=== PATIENT | male | born 1955 ===

== ENCOUNTER 2016-05-21 08:48 | Emergency (ER) | payer BC ==
--- NOTE | 2016-05-21 09:16 | UC ---
UC General HPI - HPI Summary HPI Summary: complaint of nasal congestion and cough for over 2 weeks sinus pressure and pain more on the left side, left ear pain swelling under his tongue feels like a stone left side of tongue is painful and radiates into both sides of his jaw having some pus coming out od salivary gland for approx 2 days denies fever and chills, denies difficulty swallowing taking advil for pain relief sucking on hard candy with some relief - History of Current Complaint Stated Complaint: ORAL COMPLAINT Time Seen by Provider: 05/21/16 09:09 Hx Obtained From: Patient - Allergy/Home Medications Allergies/Adverse Reactions: Allergies Allergy/AdvReac Type Severity Reaction Status Date / Time Adhesive Tape Allergy Intermediate Rash Verified 05/21/16 09:30 Iodine Allergy Intermediate BLISTERY Verified 05/21/16 09:30 RASH Home Medications: Home Medications Bp Med, ? Name 1 tab PO DAILY 05/21/16 [History] Cholesterol Med / Name 1 tab PO DAILY 05/21/16 [History] PMH/Surg Hx/FS Hx/Imm Hx Previously Healthy: Yes - hx of salivary gland stones - Family History Known Family History: Negative: Cardiac Disease, Hypertension, Diabetes - Social History Occupation: Retired Lives: With Family Smoking Status (MU): Former Smoker Type: Cigarettes Review of Systems Constitutional: Negative Skin: Negative Eyes: Negative ENT: Sore Throat, Ear Ache, Nasal Discharge Respiratory: Cough Cardiovascular: Negative Gastrointestinal: Negative Genitourinary: Negative Motor: Negative Neurovascular: Negative Musculoskeletal: Negative Neurological: Negative Psychological: Negative All Other Systems Reviewed And Are Negative: Yes Physical Exam Triage Information Reviewed: Yes Appearance: No Pain Distress, Well-Nourished Vital Signs Reviewed: Yes Eyes: Positive: Conjunctiva Clear ENT: Positive: Pharyngeal erythema, Nasal congestion, Nasal drainage, TM bulging - left - no erythema, Other: - frontal and maxillary sinus tendernes Dental: Positive: Cervical Lymphadenopathy - left side of neck, Other: - small amout of edema onder left side of tongue Neck: Positive: Supple Respiratory: Positive: Lungs clear, Normal breath sounds, No respiratory distress Cardiovascular: Positive: RRR, No Murmur, Pulses Normal Abdomen Description: Positive: Nontender, Soft Bowel Sounds: Positive: Present Musculoskeletal: Positive: No Edema Neurological Exam: Normal Psychological Exam: Normal Skin Exam: Normal Course/Dx - Course Course Of Treatment: exam completed. will treat for sinusitis and salivary gland incfection followup with ENT - Differential Dx - Multi-Symptom Provider Diagnoses: sinusitis, salivary gland swelling Discharge - Discharge Plan Condition: Stable Disposition: HOME Prescriptions: Amoxicillin/Clavulanate TAB* [Augmentin TAB 875*] 875 mg PO BID #20 tab Patient Education Materials: Sinusitis (ED), Sialoadenitis (ED) Referrals: Vasile Tolbert MD [Primary Care Provider] - Lencho Pantoja MD [Medical Doctor] - Additional Instructions: Start antibiotic as directed Increase fluids and rest Take acetaminophen or ibuprofen for fever or pain Call Dr Pantoja for further evaluation and treatment of salivary infection and possible stones SINUSITIS What is Sinusitis? Sinusitis is inflammation or infection of the lining of the sinuses behind the bones in your cheeks or forehead. Sinusitis may occur following a common cold, flu, or other infection; allergies; a tooth infection that spreads to the sinuses; swimming in contaminated water; pressure changes in airplanes at high altitudes; violent sneezing or nose blowing or smoking or breathing other peoples smoke. Symptoms Might Include: Nasal Congestion Sneezing Watery eyes, eye irritation, or eye itching Headaches Pressure in the cheeks Wheezing Trouble smelling Sore throat and coughing may occur Treatment Recommendations: Take medicines as prescribed until completely gone. Drink plenty of fluids. Use saline nose spray to thin the mucous and help the sinuses drain. Use a vaporizer or humidifier. Apply warm compresses to the face or forehead several times a day for 10 to 20 minutes. Call Your Doctor or Return Here IF: Your pain increases during treatment. You develop a high temperature. You develop unusual swelling around the eyes. You have difficulty with your vision. You develop a severe headache, earache, or toothache. You develop increased fever or fever that does not respond to medication such as Tylenol?. You have difficulty breathing or catching your breath. You begin to have any other new symptoms that worry you. Please review your discharge instructions. If your symptoms do not improve please call your primary care provider or return to urgent care
[2016-05-21 09:38] VITALS: BP 132/85
== END 2016-05-21 10:05 | disposition home or self-care (01) ==
LOC: UCCORT 08:48
DX: J32.9 Chronic sinusitis, unspecified (principal); K11.8 Other diseases of salivary glands; Z87.891 Personal history of nicotine dependence
CPT/HCPCS: 99202; G0463

== ENCOUNTER 2017-12-16 12:13 | Emergency (ER) | payer BC ==
--- NOTE | 2017-12-16 13:11 | UC ---
Throat Pain/Nasal Mike HPI - HPI Summary HPI Summary: 62 y/o male presents to the urgent care c/o nasal congestion w/ yellowish nasal discharge, sinus pain, for the past month. Pt reports Hx of chronic sinusitis. Pt developed fever on 102F about 4 days and then chills. He has been taking Advil PO to alleviate symptoms. Pt states b/l ear and facial pressure LF> RTand +PND. Pt denies SOB, cough, chest pain, abdominal pain, dizziness, N/V/D. - History of Current Complaint Stated Complaint: FEVER SINUS COMPLAINT Time Seen by Provider: 12/16/17 13:08 Hx Obtained From: Patient Onset/Duration: Gradual Onset, Lasting Weeks - 4 weeks, Still Present, Worse Since - 5 days Severity: Moderate Pain Intensity: 5 - sinus pain Pain Scale Used: 0-10 Numeric Cough: None Associated Signs & Symptoms: Positive: Sinus Discomfort, Nasal Discharge, Fever Related History: Seasonal Allergies - Epiglottits Risk Factors Epiglottis Risk Factors: Negative - Allergies/Home Medications Allergies/Adverse Reactions: Allergies Allergy/AdvReac Type Severity Reaction Status Date / Time adhesive tape Allergy Blisters Verified 12/16/17 13:12 Iodine and Iodide Containing Allergy Blisters Verified 12/16/17 13:12 Produc Home Medications: Home Medications Cholesterol Medication 1 tab PO DAILY 12/16/17 [History] Ibuprofen TAB* [Advil TAB*] 400 - 600 mg PO Q4H PRN 12/16/17 [History Confirmed 12/16/17] Losartan/Hydrochlorothiazide [Losartan-Hctz 50-12.5 mg Tab] 1 tab PO DAILY 12/16 [History Confirmed 12/16/17] Otc Nasal Hankins "Mucinex" 2 spray BOTH NARES DAILY PRN 12/16/17 [History] PMH/Surg Hx/FS Hx/Imm Hx Previously Healthy: Yes Endocrine History: Dyslipidemia Cardiovascular History: Hypertension Other Respiratory History: recurrent sinusitis - Surgical History Surgical History: Yes Surgery Procedure, Year, and Place: REMOVAL OF SALIVARY GLAND LEFT - Family History Known Family History: Positive: Hypertension Negative: Cardiac Disease, Diabetes - Social History Occupation: Employed Full-time Lives: With Family Alcohol Use: Occasionally Substance Use Type: None Smoking Status (MU): Former Smoker Type: Cigarettes When Did the Patient Quit Smoking/Using Tobacco: 8 YEARS AGO Review of Systems Constitutional: Negative Skin: Negative Eyes: Negative ENT: Ear Ache - B/L ear pressure, Nasal Discharge, Sinus Congestion, Sinus Pain/ Tenderness Respiratory: Negative Cardiovascular: Negative Gastrointestinal: Negative Genitourinary: Negative Motor: Negative Neurovascular: Negative Musculoskeletal: Negative Neurological: Headache Psychological: Negative Is Patient Immunocompromised?: No All Other Systems Reviewed And Are Negative: Yes Physical Exam - Summary Physical Exam Summary: Vitals: reviewed General: Well developed, well-nourished male patient with NAD. Head and face: Normocephalic and atraumatic, Positive tenderness over the frontal and maxillary sinuses.. Eyes: PERRLA, EOMI x 2. Normal conjunctiva. No eye discharge. ENT: Ears and TM with normal limits. Nose: edematous and erythematous nasal mucosa with with yellowish discharge and erythematous mucosa. Pharynx with erythema, no exudate.+PND yellowish Neck: Supple, no JVD, no carotid bruits and no lymphadenopathy. Lungs: clear, no rales, no rhonchi, no wheezes. CVS: RRR, S1 and S2 present no murmurs or gallops appreciated. Abdomen: soft nontender with positive bowel sounds. Extremities: no edema noted. Neuro: WNL. Skin: warm and dry Triage Information Reviewed: Yes Throat Pain/Nasal Course/Dx - Course Course Of Treatment: 62 y/o male presents to the urgent care c/o nasal congestion w/ yellowish nasal discharge, sinus pain, for the past month. Pt reports Hx of chronic sinusitis. Pt developed fever on 102F about 4 days and then chills. He has been taking Advil PO to alleviate symptoms. Pt states b/l ear and facial pressure LF>RTand +PND. Pt denies SOB, cough, chest pain, abdominal pain, dizziness, N/V/D. Hx obtained. Pt is afebrile, but mild tachycardia w/ acute bacterial sinusitis on examination. Pt states he has not taking his BP today which controls also his HR. Pt with 4 weeks of symptoms getting worse. Pt Rx Augmentin PO and flonase nasal spray. Advised to take his BP medication. Discharge instructions explained to Pt. Advised to Return to the clinic or PCP if symptoms do not improve.Pt understood and agreed with plan of care. - Differential Dx/Diagnosis Differential Diagnosis/HQI/PQRI: Influenza, Laryngitis, Pharyngitis, Sinusitis, URI Provider Diagnoses: 1- Acute bacterial sinusitis Discharge - Sign-Out/Discharge Documenting (check all that apply): Patient Departure - D/c home All imaging exams completed and their final reports reviewed: No Studies - Discharge Plan Condition: Stable Disposition: HOME Prescriptions: Amoxicillin/Clavulanate TAB* [Augmentin TAB 875*] 875 mg PO BID #20 tab Fluticasone NASAL SPRAY 50MCG* [Flonase NASAL SPRAY 50MCG*] 2 spray BOTH NARES DAILY #1 btl Patient Education Materials: Sinusitis (ED) Referrals: Rochelle Chairez NP [Primary Care Provider] - 3 Days Additional Instructions: 1- Please increase fluid intake and rest. take full course of antibiotic to avoid resistance 2-Use Flonase as directed to help drain fluid. Also buy saline drops to clear sinuses 3--Return to the clinic or PCP in 3 days if symptoms do not improve for further management and treatment - Billing Disposition and Condition Condition: STABLE Disposition: Home - Attestation Statements Provider Attestation: Per institutional requirements, I have reviewed the chart, however, I was not consulted specifically or made aware of this patient by the midlevel provider. I did not personally evaluate, interact with , or disposition this patient.
[2017-12-16 13:22] VITALS: BP 113/79
== END 2017-12-16 13:46 | disposition home or self-care (01) ==
LOC: UCCORT 12:13
DX: J01.90 Acute sinusitis, unspecified (principal); B96.89 Other specified bacterial agents as the cause of diseases classified elsewhere; I10 Essential (primary) hypertension; Z87.891 Personal history of nicotine dependence
CPT/HCPCS: 99212; G0463